=== PATIENT | female | born 1980 | race Caucasian/White ===

== ENCOUNTER 2021-10-09 11:29 | Emergency (ER) | payer SELFPAY ==
[2021-10-09] MEDS ORDERED: Ketorolac Tromethamine 30 MG/ML VIAL ONE (12:21)
== END 2021-10-09 13:00 | disposition home or self-care (01) ==
LOC: ERS 11:29
DX: S39.012A Strain of muscle, fascia and tendon of lower back, initial encounter (principal); R51.9 Headache, unspecified; X58.XXXA Exposure to other specified factors, initial encounter
CPT/HCPCS: 96372; 99283; J1885